=== PATIENT | male | born 2000 | race African-American/Black ===

== ENCOUNTER 2022-05-21 21:08 | Emergency (ER) | payer SELFPAY ==
[~2022-05-21] VITALS: Ht 172 cm; Wt 65.0 kg
[2022-05-21 21:11] VITALS: BP 148/87
--- NOTE | 2022-05-21 21:22 | ED Respiratory ---
General Chief Complaint: Respiratory Problems Stated Complaint: SOA Source: patient (EXTREMELY DIFFICULT HISTORIAN, HOSTILE. GIVES MUCH INCONSISTENT INFORMATION) History of Present Illness Date Seen by Provider: May 21, 2022 Time Seen by Provider: 21:15 Initial Comments PT ARRIVES VIA POV --[place] IN [place] INITIALLY STATED HE "COULDN'T BREATHE" THEN STATES THE SIDE OF HIS MOUTH HURTS, AND HE CANT TALK OR BREATHE BECAUSE IT HURTS. PT IS BELLIGERENT ON ARRIVAL, NOT WANTING TO ANSWER QUESTIONS, "TALKING" WHILE BARELY OPENING HIS MOUTH. HAS MOUTH FULL OF WATER HE GIVES MUCH CONFLICTING INFORMATION HE STATES HE HAS HAD PROBLEMS WITH TOOTH FOR "2 YEARS" STATES HE WAS TOLD 2 YEARS AGO HE NEEDED A ROOT CANAL--STATES "IT MUST HAVE SLIPPED MY MIND" FIRST STATED THAT HE HAD NOT SEEN A DENTIST, THEN HE SAID HE SAW ONE 2 YEARS AGO, THEN HE STATES HE SAW ONE A COUPLE OF WEEKS AGO AT [facility] IN [place]. HE STATES HE WAS ON AMOXIL. HE TOLD RN A COMPLETELY DIFFERENT STORY ON MED RECONCILIATION, PT WAS PRESCRIBED AMOXIL 05/16/22. PER MED RECONCILIATION, HE WAS PRESCRIBED CLINDAMYCIN AND HYDROCODONE ON BY DR. ANTONINA PASCUAL, WHO IS A DENTIST AT [facility] IN [place], [place] PT VERY RAPIDLY ESCALATES, IS BELLIGERENT AND HOSTILE. HE IS SPEAKING COMPLETELY NORMAL AND IS ABLE TO FULLY OPEN MOUTH, HE IS NOT HAVING ANY DIFFICULTY TALKING OR BREATHING SECURITY CALLED. Allergies and Home Medications Patient Home Medication List Home Medication List Reviewed: Yes Review of Systems Review of Systems Constitutional: no symptoms reported EENTM: see HPI Past Gpkvpxf-Cskkxf-Xrwsal Hx Family Medical History UNABLE TO OBTAIN HISTORY ON 05/21/22 Physical Exam Vital Signs - First Documented 05/21/22 21:11 Pulse 63 Resp 16 B/P (MAP) 148/87 (107) Pulse Ox 99 O2 Delivery Room Air Capillary Refill : Height: '" Weight: lbs. oz. kg; BMI Method: General Appearance: WD/WN, no apparent distress HEENT: PERRL/EOMI, other (PARTIALY ERUPTED LEFT LOWER 3RD MOLAR, NO SIGNS OF INFECTION. TENDERNESS TO LEFT LOWER PREMOLAR. NO OBVIOUS DENTAL CARIES OR GUM INFLAMMATION, PT REPORTS TENDERNESS TO PERCUSSION. NO SWELLING TO FACE/JAW. 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, no motor/sensory deficits, alert, oriented x 3 Skin: No rash; tattoos/piercings Progress/Results/Core Measures Suspected Sepsis SIRS Temperature: Pulse: Respiratory Rate: Blood Pressure / Mean: Results/Orders Lab Results Laboratory Tests Test 05/21/22 21:19 Range/Units Influenza Type A (RT-PCR) Not Detected Not Detecte Influenza Type B (RT-PCR) Not Detected Not Detecte SARS-CoV-2 RNA (RT-PCR) Not Detected Not Detecte My Orders Orders - KATIE CHOI DO Covid 19 Inhouse Test (05/21/22 21:15) Influenza A And B By Pcr (05/21/22 21:15) Isolation Central Supply Req (05/21/22 21:15) Vital Signs/I&O 05/21/22 21:11 Pulse 63 Resp 16 B/P (MAP) 148/87 (107) Pulse Ox 99 O2 Delivery Room Air Capillary Refill : Progress Note : Progress Note PATIENT RAPIDLY ESCALATES, BELLIGERENT, HOSTILE. SECURITY CALLED TO ESCORT PT OFF PROPERTY NO PRIOR VISITS HERE. Departure Impression Primary Impression: Pain, dental Disposition: HOME, SELF-CARE Condition: Stable Departure-Patient Inst. Decision time for Depature: 21:22 Referrals: NO,LOCAL PHYSICIAN (PCP) Primary Care Physician Patient Instructions: Dental Pain ED Add. Discharge Instructions: FOLLOW UP WITH DENTIST OF CHOICE THIS WEEK FOR FURTHER CARE CONTINUE YOUR PRESCRIBED ANTIBIOTICS AND PAIN MEDICATION OVER THE COUNTER ORAJEL FOR PAIN MOTRIN OR ALEVE FOR PAIN All discharge instructions reviewed with patient and/or family. Voiced understanding. KATIE CHOI DO May 21, 2022 21:22
== END 2022-05-21 21:30 | disposition home or self-care (01) ==
LOC: ER 21:10
DX: K08.89 Other specified disorders of teeth and supporting structures (principal); Z28.310 Unvaccinated for COVID-19; Z20.822 Contact with and (suspected) exposure to COVID-19
CPT/HCPCS: 87636; 99283